=== PATIENT | male | born 1940 | race Caucasian/White ===

== ENCOUNTER 2023-04-01 09:37 | Day surgery (SDC) | payer MEDICARE ==
[2023-03-30 13:59] VITALS: BMI 32.8
[2023-04-01] MEDS ORDERED: PROPOFOL 40 ML ONE (11:13)
== END 2023-04-01 12:45 | disposition home or self-care (01) ==
LOC: EDBD → CSHSDC 09:37
PROVIDERS: ATTEND Internal Medicine Gastroenterology
PROC: 0DJD8ZZ Inspection of Lower Intestinal Tract, Via Natural or Artificial Opening Endoscopic (ICD-10-PCS; principal; 2023-04-01)
DX: K57.30 Diverticulosis of large intestine without perforation or abscess without bleeding (principal); K64.8 Other hemorrhoids; K63.89 Other specified diseases of intestine; R10.32 Left lower quadrant pain; R19.7 Diarrhea, unspecified; E11.22 Type 2 diabetes mellitus with diabetic chronic kidney disease; I12.9 Hypertensive chronic kidney disease with stage 1 through stage 4 chronic kidney disease, or unspecified chronic kidney disease; N18.30 Chronic kidney disease, stage 3 unspecified; I25.10 Atherosclerotic heart disease of native coronary artery without angina pectoris; E78.5 Hyperlipidemia, unspecified; Z86.010 Personal history of colon polyps; Z79.899 Other long term (current) drug therapy; Z79.82 Long term (current) use of aspirin; Z79.84 Long term (current) use of oral hypoglycemic drugs; Z88.1 Allergy status to other antibiotic agents; Z88.2 Allergy status to sulfonamides
CPT/HCPCS: J2704